=== PATIENT | female | born 1985 | race Caucasian/White ===

== ENCOUNTER 2023-02-02 09:27 | Emergency (ER) | payer MEDICARE, SELFPAY ==
--- NOTE | ~2023-02-02 | XR_ITS ---
XR wrist LT min 3V, XR hand LT 2V 02/02/2023 10:36 Indication: Left hand and wrist pain Procedure: 4 views left wrist and 2 views left hand Comparison: No prior studies for comparison. Findings: There is anatomic alignment. No fracture, subluxation or dislocation. No erosive changes. N o significant degenerative change. No foreign bodies. No focal soft tissue abnormality. Impression: 1: No acute abnormality of the left hand/wrist. Reviewed, dictated and finalized at location L. Impression: 1: No acute abnormality of the left hand/wrist. Impression: 1: No acute abnormality of the left hand/wrist.
[2023-02-02 09:31] VITALS: BP 129/75; PULSE 130; RESP 16; TEMP 36.8; O2SAT 100
--- NOTE | 2023-02-02 10:27 | ED.UPPEXIN ---
HPI - Extremity Injury (Upper) General Chief Complaint: Extremity Injury, Upper Stated Complaint: L wrist nerve home Time Seen by Provider: 02/02/23 09:38 Source: patient Mode of arrival: ambulatory Limitations: no limitations History of Present Illness HPI narrative: Patient is a 37-year-old female who presents to the ED with report of left hand and wrist pain. 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 She reports pain to ventral left wrist extending to her palmar surface and into her 2nd-4th digits, particularly her 3rd digit. She notes a history of carpal tunnel in her right hand that felt similar. She has been using a wrist splint at night and occasionally during the day and taking ibuprofen without much improvement of the pain. She denies any numbness or tingling in her digits. Denies any swelling of hand or fingers. Related Data Home Medications Medication Instructions Recorded Confirmed amitriptyline 100 mg tablet 100 mg PO ONCE 02/20/20 06/23/21 lorazepam 0.5 mg tablet (Ativan) 0.5 mg PO DAILY PRN Anxiety 02/20/20 06/23/21 Allergies Allergy/AdvReac Type Severity Reaction Status Date / Time codeine Allergy Unknown unknown Verified 02/02/23 09:33 hydrocodone AdvReac Mild NAUSEA Verified 02/02/23 09:33 Review of Systems Review of Systems: CONSTITUTIONAL: Denies fever, chills, or sweats. MUSCULOSKELETAL: See HPI. NEUROLOGIC: See HPI. All systems reviewed & are unremarkable except as noted in HPI and below PMFSH Past Medical History Medical History Anxiety Cyclic vomiting syndrome Depression Endometriosis Hypothyroidism Migraines POTS (postural orthostatic tachycardia syndrome) PTSD (post-traumatic stress disorder) Surgical History Surgical History History of cholecystectomy History of laparoscopy Family History Family History Grandparent Hypertension Social History Social History Smoking status: Former smoker Second hand tobacco smoke exposure: No Smoking end date: 08/21/17 Alcohol intake: never Substance use: current Substance use type: marijuana Other substance usage details: Medical Marijuana Exam Narrative: GENERAL: Well appearing, well-nourished, non-toxic, in no acute distress. HEAD: Normocephalic, atraumatic. NECK: Supple. No adenopathy, no masses. RESPIRATORY: Airway patent, respirations nonlabored. CARDIOVASCULAR: Regular rate and rhythm without murmurs, rubs, or gallops. Radial pulses 2+ and equal bilaterally. ABDOMINAL: Soft, nontender, nondistended, no hepatosplenomegaly. Normoactive BS. MUSCULOSKELETAL: Moves all extremities. Full ROM of L wrist/fingers. No gross deformities. Positive carpal compression testing with reproduction of pain in 2nd/3rd digit with pressing on median nerve. No significant discomfort with Phalen's testing. Mild tenderness to palpation over ventral left wrist, thenar eminence, mid palmar surface. Sensation intact throughout entirety of left wrist and hand. SKIN: Warm, dry, normal color. No rashes. NEURO: A&O X3. Speech clear. Cranial nerves II-XII grossly intact. Steady gait. No ataxic movements. PSYCHIATRIC: Appropriate mood and affect. Normal interaction. Course Vital Signs Vital signs: Vital Signs Temperature 98.2 F 02/02/23 09:31 Pulse Rate 130 H 02/02/23 09:31 Respiratory Rate 16 02/02/23 09:31 Blood Pressure 129/75 02/02/23 09:31 Pulse Oximetry 100 02/02/23 09:31 Temperature 98.2 F 02/02/23 09:31 Pulse Rate 130 H 02/02/23 09:31 Respiratory Rate 16 02/02/23 09:31 Blood Pressure 129/75 02/02/23 09:31 Pulse Oximetry 100 02/02/23 09:31 MDM - Extremity Injury (Upper) MDM Narrative
--- NOTE | 2023-02-02 11:14 | PC.NURSE ---
report received from Rosalia MEJIA
== END 2023-02-02 11:57 | disposition home or self-care (01) ==
PROVIDERS: Emergency Provider Physician Assistant; PCP Nurse Practitioner Family
DX: G56.02 Carpal tunnel syndrome, left upper limb (principal); N80.9 Endometriosis, unspecified; E03.9 Hypothyroidism, unspecified; G90.A Postural orthostatic tachycardia syndrome [POTS]; F41.9 Anxiety disorder, unspecified; F32.A Depression, unspecified; F43.10 Post-traumatic stress disorder, unspecified; Z87.891 Personal history of nicotine dependence; Z90.49 Acquired absence of other specified parts of digestive tract
CPT/HCPCS: 73110; 73120; 99283